=== PATIENT | female | born 1965 | race Caucasian/White ===

== ENCOUNTER 2024-06-05 23:38 | Emergency (ER) | payer MEDICARE ==
[~2024-06-05] VITALS: Ht 165.1 cm; Wt 68.5 kg
[2024-06-05 23:40] VITALS: O2SAT 100
[2024-06-06 01:34] VITALS: BP 103/62; PULSE 62; RESP 16; TEMP 36.94740; O2SAT 98
[2024-06-06 02:52] LABS: CHLORIDE 104 mEq/L (98-107); POTASSIUM 3.9 mEq/L (3.5-5.1); SODIUM 139 mEq/L (136-145)
[2024-06-06 02:53] LABS: CARBON DIOXIDE 25 mEq/L (21-32); INR 1.2; PROTHROMBIN TIME 12.8 sec (9.6-11.0)
[2024-06-06 02:58] LABS: CREATININE 0.8 mg/dL (0.6-1.0); GLUCOSE 84 mg/dL (70-105); TROPONIN I HIGH SENSITIVITY 6 ng/L (3.0-34); UREA NITROGEN BLOOD 13 mg/dL (9-23)
[2024-06-06 02:59] LABS: ETHANOL BLOOD < 10 mg/dL (<10)
[2024-06-06 03:03] LABS: T4 FREE 2.09 ng/dL (0.89-1.76); THYROID STIMULATING HORMONE < 0.10 uIU/mL (0.55-4.78)
[2024-06-06] MEDS: IBUPROFEN 600MG TABLET PO ONE (03:30)
[2024-06-06] MEDS: ACETAMINOPHEN 325MG TABLET PO ONE (03:30)
[2024-06-06 05:35] LABS: CLARITY URINE CLEAR (CLEAR); COLOR URINE YELLOW (YELLOW); GLUCOSE URINE NEGATIVE (NEGATIVE); KETONES URINE NEGATIVE (NEGATIVE); LEUKOCYTE ESTERASE URINE NEGATIVE (NEGATIVE); NITRITE URINE NEGATIVE (NEGATIVE); OCCULT BLOOD URINE NEGATIVE (NEGATIVE); PROTEIN URINE NEGATIVE (NEGATIVE); SPECIFIC GRAVITY URINE 1.005 (1.005-1.030); UROBILINOGEN URINE 0.2 E.U./dL (0.2-1.0)
[2024-06-06 05:44] LABS: *AMPHETAMINES SCREEN URINE NEGATIVE (NEGATIVE); *BARBITURATES SCREEN URINE NEGATIVE (NEGATIVE); *BENZODIAZEPINES SCREEN URINE NEGATIVE (NEGATIVE); *COCAINE SCREEN URINE NEGATIVE (NEGATIVE); CANNABINOID URINE SCREEN NEGATIVE (NEGATIVE); ECSTASY MDMA SCREEN URINE NEGATIVE (NEGATIVE); METHADONE URINE SCREEN NEGATIVE (NEGATIVE); OPIATES URINE SCREEN NEGATIVE (NEGATIVE); PHENCYCLIDINE URINE SCREEN NEGATIVE (NEGATIVE)
[2024-06-06] MEDS: IBUPROFEN 600MG TABLET PO NR (06:00)
[2024-06-06] MEDS: ACETAMINOPHEN 325MG TABLET PO NR (06:00)
[2024-06-06 06:13] LABS: BASOPHILS % 0.4 % (0.0-2.0); EOSINOPHILS % 3.1 % (0.0-5.0); HEMATOCRIT. 38.6 % (36.0-48.0); HEMOGLOBIN. 12.8 g/dL (12.0-16.0); LYMPHOCYTES % 30.8 % (20.0-50.0); MEAN CORPUSCULAR HEMOGLOBIN 32.1 pg (28.0-32.0); MEAN CORPUSCULAR HGB CONC 33.2 g/dL (31.0-37.0); MEAN CORPUSCULAR VOLUME 96.8 fL (81.0-99.0); MEAN PLATELET VOLUME 8.9 fl (7.4-10.4); MONOCYTES % 8.8 % (2.0-8.0); NEUTROPHILS % 56.9 % (40.0-76.0); PLATELET 307 x1000/uL (130-400); RED BLOOD CELL COUNT 3.98 mill/uL (4.2-5.4); RED CELL DISTRIBUTION WIDTH 13.3 % (11.6-14.6)
== END 2024-06-06 06:49 | disposition home or self-care (01) ==
LOC: ER 23:59
DX: R42 Dizziness and giddiness (principal); F31.9 Bipolar disorder, unspecified; I51.7 Cardiomegaly; Z95.0 Presence of cardiac pacemaker
CPT/HCPCS: 36415; 71045; 72100; 72170; 80048; 80178; 80305; 80320; 81003; 83880; 84439; 84443; 84484; 85025; 93005; 99284; G0480